=== PATIENT | female | born 1945 | race Caucasian/White ===

== ENCOUNTER 2019-01-31 12:08 | Outpatient (CLI) | END 2019-01-31 12:09 | disposition home or self-care (01) | LOC: RHC-LAB 12:08 → FCC-LAB 12:09 | PROVIDERS: ATTEND Family Medicine | DX: E11.65 Type 2 diabetes mellitus with hyperglycemia (principal); I10 Essential (primary) hypertension | CPT/HCPCS: 36415; 80053; 80061; 82043; 83037; 85025 ==

== ENCOUNTER 2019-11-06 11:47 | Inpatient (IN) ==
[2019-11-06] MEDS ORDERED: SODIUM CHLORIDE 1,000 ML IV STA ×2 (12:26→15:43)
[2019-11-06] MEDS ORDERED: DUONEB NEB STA (12:26)
[2019-11-06] MEDS ORDERED: ANTIVERT PO STA (12:28)
--- NOTE | 2019-11-06 12:33 | ED.PDOC ---
General ED Provider: Dr. PAVITHRA JERRY MD Chief Complaint: Dizziness Stated Complaint: mild to mod sudden dizzy today with the room spinning, blood sugar high, no injury, +general weakness and fatigue, no fever, no on home oxygen, current RA O2sat 91% Time Seen by Physician: 12:30 Mode of Arrival: Walk-In Information Source: Patient Nursing and Triage Documentation Reviewed and Agree: Yes Does patient meet sepsis criteria?: No System Inflammatory Response Syndrome: Not Applicable Sepsis Protocol: For patient's 13 years and over: Temp is 96.8 and below OR 101 and greater Pulse >90 BPM Resp >20/minute Acutely Altered Mental Status Are patient's symptoms suggestive of a new infection, such as: -Pneumonia -Skin, Soft Tissue -Endocarditis -UTI -Bone, Joint Infection -Implantable Device -Acute Abdominal Infection -Wound Infection -Meningitis -Blood Stream Catheter Infection -Unknown Neurological Complaint Exam Dizziness Complaint/Exam Onset: Sudden Duration: few hours Symptoms Are: Still present Timing: Constant Initial Severity: Moderate Current Severity: Mild Character: Reports Head spinning Aggravating: Reports Position change Associated Signs and Symptoms: Denies Vomiting CVA Risk Factors: Reports Diabetes Review of Systems Review Of Systems Constitutional: Denies Fever Eyes: Denies Vision change Ears, Nose, Mouth, Throat: Denies Throat pain Respiratory: Reports Wheezing Cardiac: Denies Chest pain GI: Denies Vomiting Musculoskeletal: Denies Back pain Skin: Denies Rash and Cyanosis Neurological: Denies Cognitive dysfunction and Headache All Other Systems: Other [facility] Medical History (Updated 11/06/19 @ 17:05 by CHANTELLE HADLEY RN) Adult BMI 31.0-31.9 kg/sq m Arthritis Chronic hip pain Chronic hip pain, bilateral (Acute) Decreased mobility (Acute) Diabetes mellitus Elevated cholesterol Gastroesophageal reflux disease Heart disease History of heart artery stent (Acute) Hypertension (Acute) Osteoarthritis, hip, bilateral (Acute) Seasonal allergies Tachycardia (Acute) Family History 19 CHILD Age: 34 Depression Seizures daughter No problems noted. daughter No problems noted. son Cancer son No problems noted. Social History Smoking and tobacco status: Current some day smoker Tobacco: How many years used: 40 Quit status: not considering quitting Second hand smoke exposure: Yes Smoking risk assessment performed: No Alcohol intake: never Substance use type: does not use Counseling given: No Counseling provided: none Sammi/yarsanism: MORAVIAN Special sammi needs: No Agree to transfusion: Yes Adopted: No Caregiver/support person: No Foster care: No Household members: children and friend(s) Housing: other Marital status: W / Lives independently: No Daycare: no daycare Number of children: 4 Number of grandchildren: 8 Highest education level completed: high school graduate Financial difficulty paying for basics: somewhat hard service: No long term: No Current occupational status: disabled Current occupational exposures/hazards: No Pets and animals: Yes Leisure activites: other History of recent travel: Yes Sexually active: No Do you think of yourself as: straight/heterosexual Current gender identity: female Seatbelt use: always Helmet use: No Drives intoxicated or rides with intoxicated wedding transportation driver: No Current diet type/program: regular Well-balanced diet: rarely Caffeine: Yes Eating out: 1-3 times/week Reads food labels: seldom or never During the past year weight has: remained stable Water heater temperature set < 120 degrees: Yes Working smoke detector in home: Yes Fire extinguisher in home: Yes Carbon monoxide detector in home: No Firearms in home: No What type of physical activity do you participate in?: none Physical activity functional status: assisted ambulation How many days of moderate to strenuous exercise, like a brisk walk, did you do in the last 7 days: 0 Physical Exam Physical Exam Appearance: Reports Well-appearing Ill-appearing: None Pain Distress: None Eyes: Reports JARETH and EOMI ENT: Reports Dry mucosa Neck: Supple Respiratory: Reports Airway patent and Wheezes Cardiovascular: Reports Irregular rhythm; Denies Tachycardia GI/: Reports Soft and Nontender Musculoskeletal: Reports No edema Skin: Reports Warm and Dry Neurological: Reports Sensation intact and Cranial nerves intact Psychiatric: Reports Affect appropriate Interpretation Radiology Interpretation Radiology Interpretation By: Radiologist Radiology Results: No acute changes Exam Interpreted: CXR EKG Interpretation Time of EKG #1: 15:45 Interpretation: atrial fib 70 w/o stemi, as seen 10/29/19 Re-Evaluation Re-Evaluation Time of Re-Evaluation: 15:46 Status: Improved Vital Signs Stable: Yes Appearance: NAD Lungs: Clear Skin: Warm and Dry Neuro: Alert and Oriented X3 Additional Comments: admit d/w Karen for relative hypoxia, dehydration, hyperglycemia Critical Care Note Critical Care Note Total Time (mins): 0 Course Course Hematology/Chemistry: 11/06/19 13:00 11/06/19 13:00 Orders, Labs, Meds: Lab Review 11/06/19 11/06/19 11/06/19 12:33 12:40 13:00 WBC 24.35 H RBC 4.50 Hgb 11.3 L Hct 37.0 MCV 82.2 MCH 25.1 L MCHC 30.5 L RDW Coeff of Ann 14.3 Plt Count 468 H Immature Gran % (Auto) 0.6 Neut % (Auto) 84.0 H Lymph % (Auto) 7.5 L Cook % (Auto) 7.6 Eos % (Auto) 0.0 Baso % (Auto) 0.3 Immature Gran # (Auto) 0.2 Neut # (Auto) 20.4 H Lymph # (Auto) 1.8 Cook # (Auto) 1.9 Eos # (Auto) 0.0 Baso # (Auto) 0.1 Puncture Site Rrad O2 Saturation 92.0 L ABG pH 7.390 ABG pCO2 43.2 ABG pO2 65.0 L ABG HCO3 26.2 H ABG Total CO2 27 ABG Base Excess 1 Victor Hugo Test + FiO2 % 21.0 Sodium Potassium Chloride Carbon Dioxide Anion Gap BUN Creatinine Estimated GFR (MDRD) BUN/Creatinine Ratio Glucose Lactic Acid Calcium Total Bilirubin AST ALT Alkaline Phosphatase Troponin I NT-Pro-B Natriuret Pep Total Protein Albumin Globulin Albumin/Globulin Ratio TSH Free T4 Urine Color Yellow Urine Clarity Clear Urine pH 7.0 Ur Specific [place] 1.015 Urine Protein Trace H Urine Glucose (UA) 2+ H Urine Ketones Negative Urine Blood Trace-intact H Urine Nitrite Negative Urine Bilirubin Negative Urine Urobilinogen 0.2 Ur Leukocyte Esterase Negative Urine Microscopic RBC 10-20 Urine Microscopic WBC 5-10 Ur Squamous Epith Cells 10-20 Ur Transition Epith Cell 0-2 Urine Bacteria 3+ Acetone, Qual Influ A Molecular Assay Influ B Molecular Assay 11/06/19 11/06/19 11/06/19 13:00 13:00 13:00 WBC RBC Hgb Hct MCV MCH MCHC RDW Coeff of Ann Plt Count Immature Gran % (Auto) Neut % (Auto) Lymph % (Auto) Cook % (Auto) Eos % (Auto) Baso % (Auto) Immature Gran # (Auto) Neut # (Auto) Lymph # (Auto) Cook # (Auto) Eos # (Auto) Baso # (Auto) Puncture Site O2 Saturation ABG pH ABG pCO2 ABG pO2 ABG HCO3 ABG Total CO2 ABG Base Excess Victor Hugo Test FiO2 % Sodium 133.0 L Potassium 4.46 Chloride 85.9 L Carbon Dioxide 25.0 Anion Gap 26.56 BUN 28.9 H Creatinine 1.54 H Estimated GFR (MDRD) 33.00 BUN/Creatinine Ratio 18.76 Glucose 742.8 H* Lactic Acid Calcium 9.56 Total Bilirubin 0.64 AST 38.3 H ALT 37.3 H Alkaline Phosphatase 169.7 H Troponin I 0.040 NT-Pro-B Natriuret Pep Total Protein 7.37 Albumin 4.44 Globulin 2.93 Albumin/Globulin Ratio 1.51 TSH Free T4 1.55 Urine Color Urine Clarity Urine pH Ur Specific [place] Urine Protein Urine Glucose (UA) Urine Ketones Urine Blood Urine Nitrite Urine Bilirubin Urine Urobilinogen Ur Leukocyte Esterase Urine Microscopic RBC Urine Microscopic WBC Ur Squamous Epith Cells Ur Transition Epith Cell Urine Bacteria Acetone, Qual N Influ A Molecular Assay Influ B Molecular Assay 11/06/19 11/06/19 11/06/19 13:00 14:45 15:00 WBC RBC Hgb Hct MCV MCH MCHC RDW Coeff of Ann Plt Count Immature Gran % (Auto) Neut % (Auto) Lymph % (Auto) Cook % (Auto) Eos % (Auto) Baso % (Auto) Immature Gran # (Auto) Neut # (Auto) Lymph # (Auto) Cook # (Auto) Eos # (Auto) Baso # (Auto) Puncture Site O2 Saturation ABG pH ABG pCO2 ABG pO2 ABG HCO3 ABG Total CO2 ABG Base Excess Victor Hugo Test FiO2 % Sodium Potassium Chloride Carbon Dioxide Anion Gap BUN Creatinine Estimated GFR (MDRD) BUN/Creatinine Ratio Glucose Lactic Acid 4.86 H Calcium Total Bilirubin AST ALT Alkaline Phosphatase Troponin I NT-Pro-B Natriuret Pep Total Protein Albumin Globulin Albumin/Globulin Ratio TSH 2.200 Free T4 Urine Color Urine Clarity Urine pH Ur Specific [place] Urine Protein Urine Glucose (UA) Urine Ketones Urine Blood Urine Nitrite Urine Bilirubin Urine Urobilinogen Ur Leukocyte Esterase Urine Microscopic RBC Urine Microscopic WBC Ur Squamous Epith Cells Ur Transition Epith Cell Urine Bacteria Acetone, Qual Influ A Molecular Assay Negative by naat Influ B Molecular Assay Negative by naat 03/19/20 15:00 WBC RBC Hgb Hct MCV MCH MCHC RDW Coeff of Ann Plt Count Immature Gran % (Auto) Neut % (Auto) Lymph % (Auto) Cook % (Auto) Eos % (Auto) Baso % (Auto) Immature Gran # (Auto) Neut # (Auto) Lymph # (Auto) Cook # (Auto) Eos # (Auto) Baso # (Auto) Puncture Site O2 Saturation ABG pH ABG pCO2 ABG pO2 ABG HCO3 ABG Total CO2 ABG Base Excess [place] Test FiO2 % Sodium Potassium Chloride Carbon Dioxide Anion Gap BUN Creatinine Estimated GFR (MDRD) BUN/Creatinine Ratio Glucose Lactic Acid Calcium Total Bilirubin AST ALT Alkaline Phosphatase Troponin I NT-Pro-B Natriuret Pep 637.000 H Total Protein Albumin Globulin Albumin/Globulin Ratio TSH Free T4 Urine Color Urine Clarity Urine pH Ur Specific [place] Urine Protein Urine Glucose (UA) Urine Ketones Urine Blood Urine Nitrite Urine Bilirubin Urine Urobilinogen Ur Leukocyte Esterase Urine Microscopic RBC Urine Microscopic WBC Ur Squamous Epith Cells Ur Transition Epith Cell Urine Bacteria Acetone, Qual Influ A Molecular Assay Influ B Molecular Assay Orders Category Date Time Status ABG DRAW REQUEST Stat CARDIO 11/06/19 12:33 Completed EKG-(ED ONLY) Stat CARDIO 11/06/19 14:23 Completed NEBULIZER TREATMENT Stat CARDIO 11/06/19 12:26 Completed TELEMETRY MONITORING TELE CARE 11/06/19 15:45 Active ED APPLY O2 .ONCE EMERGENCY 11/06/19 12:26 Active ABG Stat LAB 11/06/19 12:33 Completed ACETONE, QUALITATIVE Stat LAB 11/06/19 13:00 Completed BLOOD CULTURE Stat LAB 11/06/19 14:20 Received CBC W/ AUTO DIFF Stat LAB 11/06/19 13:00 Completed COMPREHENSIVE METABOLIC PANEL Stat LAB 11/06/19 13:00 Completed FLU A/B MOLECULAR Stat LAB 11/06/19 14:45 Completed LACTIC ACID Stat LAB 11/06/19 15:00 Completed NT-PROBNP Stat LAB 11/06/19 15:00 Completed TROPONIN I Stat LAB 11/06/19 13:00 Completed URINALYSIS C & S IF INDICATED Stat LAB 11/06/19 12:40 Completed URINE CULTURE Stat LAB 11/06/19 12:40 Received Ceftriaxone/D5w 1 gm Premix [Rocephin 1 gm/50 ml D5w] MEDS 11/06/19 14:02 Discontinued 1 gm in 50 ml IV ONCE Insulin Regular, Human [Humulin R] MEDS 11/06/19 14:04 Discontinued 5 unit IVP ONCE STA Ipratropium/Albuterol Neb [Duoneb] MEDS 11/06/19 12:26 Discontinued 3 ml NEB ONCE STA Meclizine HCl [Antivert] MEDS 11/06/19 12:28 Discontinued 25 mg PO ONCE STA Sodium Chloride 0.9% [Sodium Chloride] 1,000 ml MEDS 11/06/19 12:26 Discon tinued IV BOLUS Sodium Chloride 0.9% [Sodium Chloride] 1,000 ml MEDS 11/06/19 15:43 Discont inued IV BOLUS CHEST, 1V AP ONLY Stat RADS 11/06/19 12:[address] HEAD W/O CONTRAST Stat RADS 11/06/19 12:26 Completed Medications Generic Name Dose Route Start Last Admin Trade Name Freq PRN Reason Stop Dose Admin Acetaminophen 650 mg 11/06/19 17:03 Tylenol PO Q4H PRN fever or headach Albuterol Sulfate 1 puff 11/06/19 18:00 Proair Hfa IH Q4HWA RILEY Apixaban 5 mg 11/06/19 21:00 Eliquis PO BID [facility] Atorvastatin Calcium 20 mg 11/06/19 17:00 11/06/19 17:30 Lipitor PO 20 mg DAILY@1700 RILEY Administration Hydrochlorothiazide 25 mg 11/07/19 09:00 Hydrochlorothiazide PO DAILY RILEY Sodium Chloride 1,000 mls @ 75 mls/hr 11/06/19 16:00 11/06/19 17:47 Sodium Chloride IV 75 mls/hr .[id number] RILEY Administration Ibuprofen 600 mg 11/06/19 16:53 Motrin PO BID PRN Pain Insulin Human Regular 0 unit 11/06/19 17:49 Humulin R SUBCUT PRN PRN Hyperglycemia Protocol Lisinopril 40 mg 11/06/19 17:00 11/06/19 17:30 Zestril PO 40 mg DAILY RILEY Administration Metformin HCl 1,000 mg 11/06/19 19:00 Glucophage PO BIDWM [facility] Metoprolol Tartrate 50 mg 11/06/19 21:00 Lopressor PO BID [facility] Non-Formulary Medication 0.75 mg 11/06/19 17:00 Dulaglutide [Trulicity] SUBCUT QWEEK [facility] Non-Formulary Medication 3 mg 11/06/19 21:00 Melatonin PO BEDTIME [facility] Omeprazole 20 mg 11/07/19 06:30 Prilosec PO DAILY@0630 RILEY Ondansetron HCl 4 mg 11/06/19 17:01 Zofran 4 Mg/2 Ml IVP Q6H PRN nausea/vomiting Tizanidine HCl 2 mg 11/06/19 21:00 Zanaflex PO BEDTIME [facility] Discontinued Medications Generic Name Dose Route Start Last Admin Trade Name Freq PRN Reason Stop Dose Admin Acetaminophen 650 mg 11/06/19 15:49 Tylenol PO Q4H PRN Mild Pain Albuterol/Ipratropium 3 ml 11/06/19 12:26 11/06/19 13:23 Duoneb NEB 11/06/19 12:27 3 ml ONCE STA Administration Sodium Chloride 1,000 mls @ 1,000 mls/hr 11/06/19 12:26 11/06/19 13:40 Sodium Chloride IV 11/06/19 13:25 1,000 mls/hr BOLUS STA Administration CEFTRIAXONE/D5W 1 GM PREMIX 1 gm in 50 mls @ 75 mls/hr 11/06/19 14:02 11/06/19 14:43 Rocephin 1 Gm/50 Ml D5w IV 11/06/19 14:41 75 mls/hr ONCE STA Administration Sodium Chloride 1,000 mls @ 1,000 mls/hr 11/06/19 15:43 Sodium Chloride IV 11/06/19 16:42 BOLUS STA Insulin Human Regular 5 unit 11/06/19 14:04 11/06/19 14:43 Humulin R IVP 11/06/19 14:05 5 unit ONCE STA Administration Meclizine HCl 25 mg 11/06/19 12:28 11/06/19 13:41 Antivert PO 11/06/19 12:29 25 mg ONCE STA Administration Vital Signs: Temp Pulse Resp BP Pulse Ox 11/06/19 11:47 99.3 F 85 20 118/62 91 L Discharge Plan Discharge Patient Disposition: PLACED OBSERVATION Discharge Problem: Hypoxia, Acute hyperglycemia Leukocytosis Qualifiers: Leukocytosis type: unspecified Qualified Code(s): D72.829 - Elevated white blood cell count, unspecified ED Provider: PAVITHRA JERRY Condition: Good Discharge Date/Time: 11/06/19 16:05
--- NOTE | 2019-11-06 13:23 | CT ---
EXAM: CT BRAIN HISTORY: Dizziness TECHNIQUE: CT brain without intravenous contrast. 5-mm axial sections with Reformations. COMPARISON: None FINDINGS: Brain was unremarkable without evidence of hemorrhage or large vessel distribution recent ischemic i nfarction. There is no suggestion of acute hydrocephalus or subdural fluid collection. No mass or m ass effect. Cranium has no acute finding. Mastoid processes are aerated. The visualized paranasal sinuses are clear. IMPRESSION: No acute intracranial process.
--- NOTE | 2019-11-06 13:36 | DI ---
EXAM: CHEST FRONTAL VIEW HISTORY: Weakness. COMPARISON: None FINDINGS: Cardiomegaly and sternotomy wires as well as atherosclerotic disease are present. No acut e infiltrates are seen. No vascular congestion. There is no consolidation, visible pleural fluid or pneumothorax. Bones reveal no acute fracture. IMPRESSION: No acute cardiopulmonary process.
[2019-11-06] MEDS ORDERED: ROCEPHIN 1 GM/50 ML D5W 1 GM/50 ML BAG IV STA (14:02)
[2019-11-06] MEDS ORDERED: HUMULIN R IVP STA (14:04)
[2019-11-06] MEDS ORDERED: TYLENOL PO PRN ×3 (15:49→21:00)
[2019-11-06 16:48] VITALS: BMI 30.4
[2019-11-06] MEDS ORDERED: MOTRIN PO PRN ×2 (16:53→21:00)
[2019-11-06] MEDS ORDERED: ZESTRIL PO SCH (17:00)
[2019-11-06] MEDS ORDERED: LIPITOR PO SCH (17:00)
[2019-11-06] MEDS ORDERED: NON-FORMULARY MEDICATION (Dulaglutide [Trulicity] 0.75 MG) SUBCUT SCH (17:00)
[2019-11-06] MEDS ORDERED: ZOFRAN 4 MG/2 ML IVP PRN (17:01)
[2019-11-06] MEDS ORDERED: HUMULIN R SUBCUT PRN (17:07)
[2019-11-06] MEDS ORDERED: HUMULIN R ONE (17:28)
[2019-11-06] MEDS: SODIUM CHLORIDE 1,000 ML IV SCH (17:47)
[2019-11-06] MEDS ORDERED: PROAIR HFA (SINGLE PATIENT USE) IH SCH (18:00)
[2019-11-06] MEDS ORDERED: GLUCOPHAGE PO SCH (19:00)
[2019-11-06] MEDS: HUMULIN R SUBCUT PRN (20:46)
[2019-11-06] MEDS ORDERED: ELIQUIS PO SCH (21:00)
[2019-11-06] MEDS ORDERED: ZANAFLEX PO SCH ×2 (21:00)
[2019-11-06] MEDS ORDERED: LOPRESSOR PO SCH (21:00)
[2019-11-06] MEDS: PROAIR HFA (SINGLE PATIENT USE) IH SCH (21:12)
[2019-11-06] MEDS: ELIQUIS PO SCH (21:42)
[2019-11-06] MEDS: LOPRESSOR PO SCH (21:43)
[2019-11-07 06:04] LABS: HEMATOCRIT 31.6 % (37.0-47.0)
[2019-11-07] MEDS: PROAIR HFA (SINGLE PATIENT USE) IH SCH ×4 (06:12→18:07)
[2019-11-07] MEDS: HUMULIN R SUBCUT PRN ×3 (06:13→18:02)
[2019-11-07] MEDS: SODIUM CHLORIDE 1,000 ML IV SCH (06:18)
[2019-11-07] MEDS ORDERED: PRILOSEC PO SCH (06:30)
--- NOTE | 2019-11-07 07:22 | PCM ---
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 Lisinopril [Zestril] MEDS 11/07/19 09:00 Active 40 mg PO DAILY Meclizine HCl [Antivert] MEDS 11/06/19 12:28 Discontinued 25 mg PO ONCE STA Metformin HCl [Glucophage] MEDS 11/06/19 19:00 Discontinued 1,000 mg PO BIDWM Metformin HCl [Glucophage] MEDS 11/07/19 08:00 Active 1,000 mg PO BIDWM Metoprolol Tartrate [Lopressor] MEDS 11/06/19 21:00 Active 50 mg PO BID Metoprolol Tartrate [Lopressor] MEDS 11/06/19 21:00 Discontinued 50 mg PO BID Omeprazole [Prilosec] MEDS 11/07/19 06:30 Active 20 mg PO DAILY@0630 Ondansetron HCl/Pf [Zofran 4 mg/2 ml] MEDS 11/06/19 17:01 Active 4 mg IVP Q6H PRN Sodium Chloride 0.9% [Sodium Chloride] 1,000 ml MEDS 11/06/19 16:00 Active IV 75 mls/hr Sodium Chloride 0.9% [Sodium Chloride] 1,000 ml MEDS 11/06/19 12:26 Discontinued IV BOLUS Sodium Chloride 0.9% [Sodium Chloride] 1,000 ml MEDS 11/06/19 15:43 D iscontinued IV BOLUS Tizanidine HCl [Zanaflex] MEDS 11/06/19 21:00 Active 2 mg PO BEDTIME Tizanidine HCl [Zanaflex] MEDS 11/06/19 21:00 Discontinued 2 mg PO BEDTIME dulaglutide [Trulicity] MEDS 11/06/19 17:00 Active 0.75 mg SUBCUT QWEEK melatonin MEDS 11/06/19 21:00 Active 3 mg PO BEDTIME RESUSCITATION STATUS Routine OTHERS 11/06/19 15:49 Ordered CHEST, 1V AP ONLY Stat RADS 11/06/19 12:[address] HEAD W/O CONTRAST Stat RADS 11/06/19 12:26 Completed Medications Generic Name Dose Route Start Last Admin Trade Name Freq PRN Reason Stop Dose Admin Acetaminophen 650 mg 11/06/19 21:00 Tylenol PO Q4H PRN fever or headach Albuterol Sulfate 1 puff 11/06/19 22:00 11/07/19 06:12 Proair Hfa IH 1 puff Q4HWA RILEY Administration Apixaban 5 mg 11/06/19 21:00 11/06/19 21:42 Eliquis PO 5 mg BID RILEY Administration Atorvastatin Calcium 20 mg 11/07/19 17:00 Lipitor PO DAILY@1700 RI[facility] Hydrochlorothiazide 25 mg 11/07/19 09:00 Hydrochlorothiazide PO DAILY RILEY Sodium Chloride 1,000 mls @ 75 mls/hr 11/06/19 16:00 11/07/19 06:18 Sodium Chloride IV 75 mls/hr .[id number] RILEY Administration CEFTRIAXONE/D5W 1 GM PREMIX 1 gm in 50 mls @ 75 mls/hr 11/07/19 09:00 Rocephin 1 Gm/50 Ml D5w IV 11/10/19 08:59 DAILY RI[facility] Azithromycin 500 mg/ Sodium 250 mls @ 125 mls/hr 11/07/19 07:15 Chloride IV 11/10/19 07:14 DAILY [facility] Ibuprofen 600 mg 11/06/19 21:00 Motrin PO BID PRN Pain Insulin Human Regular 0 unit 11/06/19 17:49 11/07/19 06:13 Humulin R SUBCUT 4 unit DIRECTED PRN Administration Hyperglycemia Protocol Lisinopril 40 mg 11/07/19 09:00 Zestril PO DAILY [facility] Metformin HCl 1,000 mg 11/07/19 08:00 Glucophage PO BIDWM [facility] Metoprolol Tartrate 50 mg 11/06/19 21:00 11/06/19 21:43 Lopressor PO 50 mg BID RILEY Administration Non-Formulary Medication 0.75 mg 11/06/19 17:00 Dulaglutide [Trulicity] SUBCUT QWEEK [facility] Non-Formulary Medication 3 mg 11/06/19 21:00 11/06/19 21:44 Melatonin PO Not Given BEDTIME [facility] Omeprazole 20 mg 11/07/19 06:30 11/07/19 06:12 Prilosec PO 20 mg DAILY@0630 [facility] Administration Ondansetron HCl 4 mg 11/06/19 17:01 Zofran 4 Mg/2 Ml IVP Q6H PRN nausea/vomiting Tizanidine HCl 2 mg 11/06/19 21:00 11/06/19 21:44 Zanaflex PO 2 mg BEDTIME RILEY Administration Discontinued Medications Generic Name Dose Route Start Last Admin Trade Name Freq PRN Reason Stop Dose Admin Acetaminophen 650 mg 11/06/19 15:49 Tylenol PO Q4H PRN Mild Pain Acetaminophen 650 mg 11/06/19 17:03 Tylenol PO Q4H PRN fever or headach Albuterol Sulfate 1 puff 11/06/19 18:00 Proair Hfa IH Q4HWA [facility] Albuterol/Ipratropium 3 ml 11/06/19 12:26 11/06/19 13:23 Duoneb NEB 11/06/19 12:27 3 ml ONCE STA Administration Apixaban 5 mg 11/06/19 21:00 11/06/19 20:49 Eliquis PO 5 mg BID RILEY Administration Atorvastatin Calcium 20 mg 11/06/19 17:00 11/06/19 17:30 Lipitor PO 20 mg DAILY@1700 [facility] Administration Sodium Chloride 1,000 mls @ 1,000 mls/hr 11/06/19 12:26 11/06/19 13:40 Sodium Chloride IV 11/06/19 13:25 1,000 mls/hr BOLUS STA Administration CEFTRIAXONE/D5W 1 GM PREMIX 1 gm in 50 mls @ 75 mls/hr 11/06/19 14:02 11/06/19 14:43 Rocephin 1 Gm/50 Ml D5w IV 11/06/19 14:41 75 mls/hr ONCE STA Administration Sodium Chloride 1,000 mls @ 1,000 mls/hr 11/06/19 15:43 Sodium Chloride IV 11/06/19 16:42 BOLUS STA Ibuprofen 600 mg 11/06/19 16:53 Motrin PO BID PRN Pain Insulin Human Regular 5 unit 11/06/19 14:04 11/06/19 14:43 Humulin R IVP 11/06/19 14:05 5 unit ONCE STA Administration Lisinopril 40 mg 11/06/19 17:00 11/06/19 17:30 Zestril PO 40 mg DAILY RILEY Administration Meclizine HCl 25 mg 11/06/19 12:28 11/06/19 13:41 Antivert PO 11/06/19 12:29 25 mg ONCE STA Administration Metformin HCl 1,000 mg 11/06/19 19:00 Glucophage PO BIDWM [facility] Metoprolol Tartrate 50 mg 11/06/19 21:00 11/06/19 20:44 Lopressor PO 50 mg BID RILEY Administration Tizanidine HCl 2 mg 11/06/19 21:00 11/06/19 20:44 Zanaflex PO 4 mg BEDTIME RILEY Administration Assessment (1) Sepsis: Status: Acute Code(s): A41.9 - Sepsis, unspecified organism SNOMED Code(s): 51397436 Qualifiers: Sepsis acute organ dysfunction status: unspecified Sepsis type: sepsis due to unspecified organism Qualified Code(s): A41.9 - Sepsis, unspecified organism (2) Hypoxia: Status: Acute Code(s): R09.02 - Hypoxemia SNOMED Code(s): 692950321 (3) Leukocytosis: Status: Acute Code(s): D72.829 - Elevated white blood cell count, unspecified SNOMED Code(s): 835042649 Qualifiers: Leukocytosis type: unspecified Qualified Code(s): D72.829 - Elevated white blood cell count, unspecified (4) Atrial fibrillation: Status: Acute Code(s): I48.91 - Unspecified atrial fibrillation SNOMED Code(s): 69427843 Qualifiers: Atrial fibrillation type: paroxysmal Qualified Code(s): I48.0 - Paroxysmal atrial fibrillation (5) Type 2 diabetes mellitus with hyperglycemia: Status: Acute Code(s): E11.65 - Type 2 diabetes mellitus with hyperglycemia SNOMED Code(s): 23389610 Qualifiers: Diabetes mellitus assisted insulin use: without assisted use Qualified Code(s): E11.65 - Type 2 diabetes mellitus with hyperglycemia (6) Transaminitis: Status: Acute Code(s): R74.0 - Nonspecific elevation of levels of transaminase and lactic acid dehydrogenase [LDH] SNOMED Code(s): 643283351 (7) History of heart bypass surgery: Status: Acute Code(s): Z95.1 - Presence of aortocoronary bypass graft SNOMED Code(s): 345365436 (8) History of heart artery stent: Status: Acute Code(s): Z95.5 - Presence of coronary angioplasty implant and graft SNOMED Code(s): 795963265 (9) Osteoarthritis, hip, bilateral: Status: Acute Code(s): M16.0 - Bilateral primary osteoarthritis of hip SNOMED Code(s): 224223434 Qualifiers: Osteoarthritis type: primary Qualified Code(s): M16.0 - Bilateral primary osteoarthritis of hip (10) Chronic hip pain, bilateral: Status: Acute Code(s): M25.551 - Pain in right hip; M25.552 - Pain in left hip; G89.29 - Other chronic pain SNOMED Code(s): 71566213 (11) Hypertension: Status: Acute Code(s): I10 - Essential (primary) hypertension SNOMED Code(s): 90089108 Qualifiers: Hypertension type: essential hypertension Qualified Code(s): I10 - Essential (primary) hypertension (12) Decreased mobility: Status: Acute Code(s): R26.89 - Other abnormalities of gait and mobility SNOMED Code(s): 9560493 Plan Plan: Sepsis w/ Hypoxia, Leukocytosis, periods of Tachycardia---unstable w/ likely heart disease issues---transferring her to [facility] if they will accept for NM stress test and possible heart cath; continue home meds; Ceftriaxone 1 GM Q 24hrs; Azithromycin 500mg IV Q 24hrs added this AM w/ further WBC elevation; IVF bolus 1L w/ NS @ 75 ml/hr cont'd; O2 as per protocol w/ currently 98% sat @ 2L/NC; VS q 4hr; I&O; daily wts.; telemetry. Afib-paroxymal --con't monitor; cardiology consult; home meds cont'd. Type 2 DM w/ hyperglycemia and new Rx Trulicity---SSI insulin controling at present; Cardiology wants to start Jardiance w/ 1st dose given 11/07/2019 afternoon w/ last dose of Metformin 1000mg around 10:30AM and Jaridiance started prior to 11:00AM per nursing report--- patient does not want to do insulin at home. Will put Metformin on hold for patient transfer and NM testing possiblities. Transaminitis--new problem that cleared w/ IVF replacement---monitor labs. Osteoarthritis bilateral hips w/ mobility issues and chronic pain----unchanged chronic pain. Has been taking Ibuprofen 600mg BID prn at home---stopped by SUPERVISOR ORCHARD and soaker meat. HTN--stable; con't home meds.
[2019-11-07] MEDS ORDERED: GLUCOPHAGE PO SCH (08:00)
[2019-11-07] MEDS: ZITHROMAX 500 MG in SODIUM CHLORIDE 250 ML IV SCH ×2 (08:34→10:39)
--- NOTE | 2019-11-07 08:34 | PCM.PROG ---
Attending Provider: ATTENDING PROVIDER: Dr. BRANDEN ELDRIDGE This patient is seen with Nimisha Parra, Nurse Practitioner. DATE OF SERVICE: 11/07/19 SUBJECTIVE: This 73 year old /WHITE F was hospitalized 11/06/19. The patient is awake and resting in the bed. She is has been up in the room. She has a good appetite. She is feeling from better then when she initially came in. She is not wanting to wear her SUSY hose because she says they are uncomfortable. We will have an echo done today. She denies any chest pain, shortness of breath or dizziness at this time. REVIEW OF SYSTEMS: CONSTITUTIONAL: No night sweats. No fatigue, malaise, lethargy. No fever or chills. HEENT: Eyes: No visual changes. No eye pain. No eye discharge. ENT: No runny nose. No epistaxis. No sinus pain. No odynophagia. No congestion. RESPIRATORY: No cough, no congestion. No hemoptysis. No shortness of breath. CARDIOVASCULAR: No angina symptoms. No CHF symptoms. No atypical chest pain for CAD. No palpitations. No orthopnea.. GASTROINTESTINAL: No abdominal pain. No nausea or vomiting. No diarrhea or constipation. No hematemesis. No hematochezia. GENITOURINARY: No urgency. No frequency. No dysuria. No hematuria. No obstructive symptoms. No discharge. No pain. No significant abnormal bleeding. MUSCULOSKELETAL: No musculoskeletal pain; no joint swelling. NEUROLOGICAL: Awake, alert, oriented to time, place and person. No headache. No neck pain. No syncope. No seizures. No dizziness. PSYCHIATRIC: Not anxious. No depression. No suicidal thoughts. No homicidal thoughts. SKIN: No rash. No lesions. No wounds. ENDOCRINE: No unexplained weight loss. No weight gain. HEMATOLOGIC/LYMPHATIC: No anemia. No purpura. No petechiae. No prolonged or excessive bleeding. No palpable lymph nodes. PHYSICAL EXAMINATION: GENERAL: The patient is awake, alert and oriented, lying in bed in no distress. VITAL SIGNS: Temperature 98.8 F, Pulse 105, Respiratory Rate 16, BP 118/69, Pulse Ox 94% HEENT: Head normocephalic, atraumatic. Eyes: Extraocular muscles are intact. Pupils are equal, round and reactive to light and accommodation. Ears: No lesions. Nose appeared normal. Throat: No exudate or erythema. NECK: Supple. No JVD, no carotid bruit. No lymphadenopathy or thyromegaly. LUNGS: Diminished breath sounds. Clear to auscultation. Percussion note normal. Chest symmetrical. HEART: S1, S2, no S3. Irregular heart rate. No murmurs. No cyanosis or clubbing. No ascites. Pulses: Dorsalis pedis and posterior tibial pulses +1 to +2 both sides. ABDOMEN: Soft. Non-tender. Bowel sounds active. No CVA tenderness. No mass felt. EXTREMITIES: No edema. Full range of motion of all extremities, equal. NEUROLOGIC: No focal deficit. Cranial nerves II through XII are grossly intact. No headache, no double vision or headache. SKIN: Not dry. Intact. Turgor-normal. LYMPHATIC: No palpable lymph nodes/no lymphedema. MUSCULOSKELETAL: Normal joints with no swelling. Muscle tone is normal. LAB REVIEW: 11/07/19 05:00 11/07/19 05:00 11/07/19 05:00: Sodium 136.7, Potassium 3.86, Chloride 95.8 L, Carbon Dioxide 33.0 H D, Anion Gap 11.76, BUN 22.4 H, Creatinine 1.01 D, Estimated GFR (MDRD) 54.00, BUN/Creatinine Ratio 22.17, Glucose 247.6 H D, Calcium 8.93, Total Bilirubin 0.29, AST 29.8, ALT 23.3, Alkaline Phosphatase 135.4 D, Total Protein 6.44, Albumin 3.48 L, Globulin 2.96, Albumin/Globulin Ratio 1.17 11/07/19 05:00: WBC 27.53 H, RBC 3.87 L, Hgb 9.8 L, Hct 31.6 L, MCV 81.7, MCH 25.3 L, MCHC 31.0 L, RDW Coeff of Ann 14.3, Plt Count 390, Neutrophils % (Manual) 77.0 H, Band Neutrophils % 5.0, Lymphocytes % (Manual) 6.0 L, Monocytes % (Manual) 12.0 H, Eosinophils % (Manual) 0.0, Basophils % (Manual) 0.0, Polychromasia 1+, Poikilocytosis 1+, Anisocytosis Not present, Tear Drop Cells 1+ 11/07/19 05:00: Troponin I 0.038 03/19/20 20:43: Troponin I 0.029 11/06/19 15:00: NT-Pro-B Natriuret Pep 637.000 H 11/06/19 15:00: Lactic Acid 4.86 H 11/06/19 14:45: Influ A Molecular Assay Negative by naat, Influ B Molecular Assay Negative by naat 11/06/19 13:00: TSH 2.200 11/06/19 13:00: Free T4 1.55 11/06/19 13:00: Acetone, Qual N 11/06/19 13:00: Sodium 133.0 L, Potassium 4.46, Chloride 85.9 L, Carbon Dioxide 25.0, Anion Gap 26.56, BUN 28.9 H, Creatinine 1.54 H, Estimated GFR (MDRD) 33.00, BUN/Creatinine Ratio 18.76, Glucose 742.8 H*, Calcium 9.56, Total Bilirubin 0.64, AST 38.3 H, ALT 37.3 H, Alkaline Phosphatase 169.7 H, Troponin I 0.040, Total Protein 7.37, Albumin 4.44, Globulin 2.93, Albumin/Globulin Ratio 1.51 11/06/19 13:00: WBC 24.35 H, RBC 4.50, Hgb 11.3 L, Hct 37.0, MCV 82.2, MCH 25.1 L, MCHC 30.5 L, RDW Coeff of Ann 14.3, Plt Count 468 H, Immature Gran % (Auto) 0.6, Neut % (Auto) 84.0 H, Lymph % (Auto) 7.5 L, [place] % (Auto) 7.6, Eos % (Auto) 0.0, Baso % (Auto) 0.3, Immature Gran # (Auto) 0.2, Neut # (Auto) 20.4 H, Lymph # (Auto) 1.8, [place] # (Auto) 1.9, Eos # (Auto) 0.0, Baso # (Auto) 0.1 11/06/19 12:40: Urine Color Yellow, Urine Clarity Clear, Urine pH 7.0, Ur Specific [place] 1.015, Urine Protein Trace H, Urine Glucose (UA) 2+ H, Urine Ketones Negative, Urine Blood Trace-intact H, Urine Nitrite Negative, Urine Bilirubin Negative, Urine Urobilinogen 0.2, Ur Leukocyte Esterase Negative, Urine Microscopic RBC 10-20, Urine Microscopic WBC 5-10, Ur Squamous Epith Cells 10-20, Ur Transition Epith Cell 0-2, Urine Bacteria 3+ 11/06/19 12:33: Puncture Site Rrad, O2 Saturation 92.0 L, ABG pH 7.390, ABG pCO2 43.2, ABG pO2 65.0 L, ABG HCO3 26.2 H, ABG Total CO2 27, ABG Base Excess 1, Victor Hugo Test +, FiO2 % 21.0 ASSESSMENT: Please see below. 1. Atrial fibrillation 2. Acute bronchitis PLAN: 1. ECHO today 2. Continue Eliquis Plan and coordination of the patient's care discussed in the presence of [employer] Saw Tender and nurse. SCRIBED BY: Art JOHNSONist scribed while in presence of service performed by Dr. Blue/Nimisha Parra APRN on 11/07/19 ([id number])
[2019-11-07] MEDS ORDERED: ZESTRIL PO SCH (09:00)
[2019-11-07] MEDS ORDERED: NON-FORMULARY MEDICATION (Dulaglutide [Trulicity] 0.75 MG) SUBCUT SCH (09:00)
[2019-11-07] MEDS ORDERED: HYDROCHLOROTHIAZIDE PO SCH (09:00)
[2019-11-07] MEDS ORDERED: ROCEPHIN 1 GM/50 ML D5W 1 GM/50 ML BAG IV SCH (09:00)
[2019-11-07] MEDS: ELIQUIS PO SCH (10:27)
[2019-11-07] MEDS: LOPRESSOR PO SCH (10:29)
[2019-11-07] MEDS ORDERED: JARDIANCE PO SCH (10:30)
--- NOTE | 2019-11-07 10:34 | ECHO2D ---
Date of Exam: 11/07/2019 Ordering Physician: BRANDEN ELDRIDGE--HOSPITALIST Room #: 112 Reason for Echo: ATRIAL FIBRILLATION, CABG M-Mode Normal Adult Results LV Dimensions Normal Adult Results AoV Opening excursions >1.6 >1.6 LVEDD-base- 3.5-5.8 4.2 Ao root dimensions 2.0-3.7 LVESD-base- 3.1-4.6 L. Atrium dimensions 1.9-3.8 4.6 Post. Wall thickness 0.8-1.1 1.1 IV septum (thickness) 0.7-1.2 1.2 Post. Wall excursion 0.72-1.3 NORMAL Septal motion 0.5 Systolic motion R. Ventricular cavity 1.5-2.0 3.0 LVEF 60% 50% Paradoxical septal wall motion NORMAL 2-D : HYPOKINETIC SEPTUM--ENLARGED RIGHT VENTRICLE CAVITY AND LEFT ATRIAL CAVITY--NORMAL LEFT VENTRICLE SIZE--NORMAL VALVES--NO EFFUSION NO THROMBUS M-MODE: MV: NORMAL AV: NORMAL TV: NORMAL PV: CHAMBER SIZE: ENLARGED RIGHT VENTRICLE AND LEFT ATRIAL CAVITIES WALL MOTION: HYPOKINETIC SEPTUM PERICARDIUM: NORMAL INTERPRETATION: 1. BORDERLINE LEFT VENTRICLE HYPERTROPHY 2. ENLARGED LEFT ATRIAL AND RIGHT VENTRICLE CAVITY 3. HYPOKINETIC SEPTUM WITH EJECTION FRACTION 50% 4. NORMAL VALVES MTDD
--- NOTE | 2019-11-07 14:05 | US ---
EXAM: Carotid ultrasound HISTORY: Dizziness COMPARISON: None TECHNIQUE: Carotid ultrasound was performed using Duplex imaging with enrique scale, color, and Doppler imaging performed. FINDINGS: Right carotid: There is atherosclerotic plaque in the common carotid and bulb/internal carotid arter y. Peak systolic velocity measurement in the right internal carotid artery is 0.53 meters per second . End-diastolic velocity measurement in the right internal carotid artery is 0.30 meters per second. Right internal to common carotid artery peak systolic velocity ratio is 1.1. Flow in the right gaby tebral artery is antegrade. Left carotid: There is atherosclerotic plaque in the common carotid and bulb/internal carotid artery . Peak systolic velocity measurement in the left internal carotid artery is 0.88 meters per second. End-diastolic velocity measurement in the left internal carotid artery is 0.22 meters per second. L eft internal to common carotid artery peak systolic velocity ratio measures 1.3. IMPRESSION: 1. Right internal carotid: Peak systolic velocity corresponds with mild (less than 50%) stenosis. 2. Left internal carotid: Peak systolic velocity corresponds with mild (less than 50%) stenosis 3. Left vertebral artery not visualized. Antegrade flow right vertebral artery.
--- NOTE | 2019-11-07 15:59 | PCM.DC ---
Final Diagnosis: Sepsis w/ Leukocytosis, Hypoxia Chest pain w/ abnormal EKG & ECHO and hx CABG w/ uncontrolled DM, obesity, HTN, HLD, & stents (1) Sepsis: Status: Acute Code(s): A41.9 - Sepsis, unspecified organism SNOMED Code(s): 40511764 Qualifiers: Sepsis acute organ dysfunction status: unspecified Sepsis type: sepsis due to unspecified organism Qualified Code(s): A41.9 - Sepsis, unspecified organism (2) Hypoxia: Status: Acute Code(s): R09.02 - Hypoxemia SNOMED Code(s): 065716045 (3) Leukocytosis: Status: Acute Code(s): D72.829 - Elevated white blood cell count, unspecified SNOMED Code(s): 525532407 Qualifiers: Leukocytosis type: unspecified Qualified Code(s): D72.829 - Elevated white blood cell count, unspecified (4) Atrial fibrillation: Status: Acute Code(s): I48.91 - Unspecified atrial fibrillation SNOMED Code(s): 55067491 Qualifiers: Atrial fibrillation type: paroxysmal Qualified Code(s): I48.0 - Paroxysmal atrial fibrillation (5) Type 2 diabetes mellitus with hyperglycemia: Status: Acute Code(s): E11.65 - Type 2 diabetes mellitus with hyperglycemia SNOMED Code(s): 26123689 Qualifiers: Diabetes mellitus retirement insulin use: without watermelon inspector use Qualified Code(s): E11.65 - Type 2 diabetes mellitus with hyperglycemia (6) Transaminitis: Status: Acute Code(s): R74.0 - Nonspecific elevation of levels of transaminase and lactic acid deh ydrogenase [LDH] SNOMED Code(s): 922011951 (7) History of heart bypass surgery: Status: Acute Code(s): Z95.1 - Presence of aortocoronary bypass graft SNOMED Code(s): 970857158 (8) History of heart artery stent: Status: Acute Code(s): Z95.5 - Presence of coronary angioplasty implant and graft SNOMED Code(s): 914089465 (9) Osteoarthritis, hip, bilateral: Status: Acute Code(s): M16.0 - Bilateral primary osteoarthritis of hip SNOMED Code(s): 625024092 Qualifiers: Osteoarthritis type: primary Qualified Code(s): M16.0 - Bilateral primary osteoarthritis of hip (10) Chronic hip pain, bilateral: Status: Acute Code(s): M25.551 - Pain in right hip; M25.552 - Pain in left hip; G89.29 - Other chronic pain SNOMED Code(s): 75044319 (11) Hypertension: Status: Acute Code(s): I10 - Essential (primary) hypertension SNOMED Code(s): 56485809 Qualifiers: Hypertension type: essential hypertension Qualified Code(s): I10 - Essential (primary) hypertension (12) Decreased mobility: Status: Acute Code(s): R26.89 - Other abnormalities of gait and mobility SNOMED Code(s): 0036948 Medications at Discharge: Ambulatory Orders Medication Instructions Recorded melatonin 3 mg PO BEDTIME 01/31/19 pen needle, diabetic [Ulticare Pen 01/31/19 Needle] albuterol sulfate 90 mcg/actuation 1 puff INHALATION Q4HR 30 Days #1 06/18/19 aerosol inhaler each ibuprofen 600 mg tablet 600 mg PO BID PRN #60 tab 06/18/19 apixaban 5 mg tablet 5 mg PO BID 30 Days #60 tab-cap 08/07/19 omeprazole 20 mg capsule,delayed 20 mg PO QDAY #30 cap 08/18/19 release hydrochlorothiazide 25 mg tablet 25 mg PO DAILY 30 Days #30 tab-cap 10/28/19 metformin 1,000 mg tablet 1,000 mg PO BID 90 Days #180 10/28/19 tab-cap lisinopril 40 mg tablet 40 mg PO QDAY #30 tab 10/29/19 metoprolol tartrate 50 mg tablet 50 mg PO BID #60 tab 10/29/19 tizanidine 2 mg capsule 2 mg PO QHS PRN #30 cap 10/29/19 atorvastatin 20 mg tablet 20 mg PO QDAY #90 tab 10/30/19 dulaglutide 0.75 mg/0.5 mL 0.75 mg SUBCUT QWEEK #1 ml 10/30/19 subcutaneous pen injector Lab/Diagnostics: Laboratory Results WBC 27.53 K/ul (4.6-10.2) H 11/07/19 05:00 RBC 3.87 10^6/ul (4.20-5.40) L 11/07/19 05:00 Hgb 9.8 g/dl (12.0-16.0) L 11/07/19 05:00 Hct 31.6 % (37.0-47.0) L 11/07/19 05:00 MCV 81.7 fl (81.0-99.0) 11/07/19 05:00 MCH 25.3 pg (27.0-31.0) L 11/07/19 05:00 MCHC 31.0 (31.8-35.4) L 11/07/19 05:00 RDW Coeff of Ann 14.3 % (11.6-14.8) 11/07/19 05:00 Plt Count 390 10^3/uL (140-440) 11/07/19 05:00 Immature Gran % (Auto) 0.6 % (0.0-5.0) 11/06/19 13:00 Neut % (Auto) 84.0 % (42.2-75.2) H 11/06/19 13:00 Lymph % (Auto) 7.5 (10.0-50.0) L 11/06/19 13:00 [place] % (Auto) 7.6 (0-10) 11/06/19 13:00 Eos % (Auto) 0.0 % (0.0-7.0) 11/06/19 13:00 Baso % (Auto) 0.3 % (0.0-3.0) 11/06/19 13:00 Immature Gran # (Auto) 0.2 (0.0-1.0) 11/06/19 13:00 Neut # (Auto) 20.4 K/ul (2.0-6.9) H 11/06/19 13:00 Lymph # (Auto) 1.8 K/uL (0.60-3.4) 11/06/19 13:00 [place] # (Auto) 1.9 K/uL (0.4-2.0) 11/06/19 13:00 Eos # (Auto) 0.0 K/ul (0.0-0.7) 11/06/19 13:00 Baso # (Auto) 0.1 K/uL (0-0.2) 11/06/19 13:00 Neutrophils % (Manual) 77.0 % (42.2-75.2) H 11/07/19 05:00 Band Neutrophils % 5.0 % (0.0-5.0) 11/07/19 05:00 Lymphocytes % (Manual) 6.0 % (10.0-50.0) L 11/07/19 05:00 Monocytes % (Manual) 12.0 % (0.0-10.0) H 11/07/19 05:00 Eosinophils % (Manual) 0.0 % (0.0-5.0) 11/07/19 05:00 Basophils % (Manual) 0.0 % (0.0-1.0) 11/07/19 05:00 Polychromasia 1+ (NOT PRESENT) 11/07/19 05:00 Poikilocytosis 1+ (NOT PRESENT) 11/07/19 05:00 Anisocytosis Not present (NOT PRESENT) 11/07/19 05:00 Tear Drop Cells 1+ (NOT PRESENT) 11/07/19 05:00 Puncture Site Rrad 11/06/19 12:33 O2 Saturation 92.0 % (95-100) L 11/06/19 12:33 ABG pH 7.390 (7.35-7.45) 11/06/19 12:33 ABG pCO2 43.2 mmHg (35-45) 11/06/19 12:33 ABG pO2 65.0 mmHg (85-100) L 11/06/19 12:33 ABG HCO3 26.2 (22.0-26.0) H 11/06/19 12:33 ABG Total CO2 27 (22.0-28.0) 11/06/19 12:33 ABG Base Excess 1 (-2.0-2.0) 11/06/19 12:33 Victor Hugo Test + 11/06/19 12:33 FiO2 % 21.0 % 11/06/19 12:33 Sodium 136.7 mmol/L (134.5-145) 11/07/19 05:00 Potassium 3.86 mmol/L (3.5-5.1) 11/07/19 05:00 Chloride 95.8 mmol/L (98-107) L 11/07/19 05:00 Carbon Dioxide 33.0 mmol/L (22-30.0) H D 11/07/19 05:00 Anion Gap 11.76 11/07/19 05:00 BUN 22.4 mg/dL (7-17) H 11/07/19 05:00 Creatinine 1.01 mg/dL (0.60-1.30) D 11/07/19 05:00 Estimated GFR (MDRD) 54.00 mL/min 11/07/19 05:00 BUN/Creatinine Ratio 22.17 11/07/19 05:00 Glucose 247.6 mg/dL (74-106) H D 11/07/19 05:00 Lactic Acid 1.57 mmol/L (0.7-2.1) D 11/07/19 07:29 Calcium 8.93 mg/dL (8.4-10.2) 11/07/19 05:00 Total Bilirubin 0.29 mg/dL (0.2-1.3) 11/07/19 05:00 AST 29.8 U/L (14-36) 11/07/19 05:00 ALT 23.3 U/L (0-35) 11/07/19 05:00 Alkaline Phosphatase 135.4 U/L (53-141) D 11/07/19 05:00 Troponin I 0.038 ng/ml (0.0000-0.120) 11/07/19 05:00 NT-Pro-B Natriuret Pep 637.000 pg/mL (0-124) H 11/06/19 15:00 Total Protein 6.44 g/dL (6.3-8.2) 11/07/19 05:00 Albumin 3.48 g/dL (3.5-5.0) L 11/07/19 05:00 Globulin 2.96 11/07/19 05:00 Albumin/Globulin Ratio 1.17 11/07/19 05:00 TSH 2.200 uIU/L (0.465-4.68) 11/06/19 13:00 Free T4 1.55 ng/dL (0.78-2.19) 11/06/19 13:00 Urine Color Yellow (YELLOW) 11/06/19 12:40 Urine Clarity Clear (CLEAR) 11/06/19 12:40 Urine pH 7.0 (5-9) 11/06/19 12:40 Ur Specific [place] 1.015 (1.005-1.030) 11/06/19 12:40 Urine Protein Trace (NEGATIVE) H 11/06/19 12:40 Urine Glucose (UA) 2+ (NEGATIVE) H 11/06/19 12:40 Urine Ketones Negative (NEGATIVE) 11/06/19 12:40 Urine Blood Trace-intact (NEGATIVE) H 11/06/19 12:40 Urine Nitrite Negative (NEGATIVE) 11/06/19 12:40 Urine Bilirubin Negative (NEGATIVE) 11/06/19 12:40 Urine Urobilinogen 0.2 (0.2) 11/06/19 12:40 Ur Leukocyte Esterase Negative (NEGATIVE) 11/06/19 12:40 Urine Microscopic RBC 10-20 (0-2) 11/06/19 12:40 Urine Microscopic WBC 5-10 (0-2) 11/06/19 12:40 Ur Squamous Epith Cells 10-20 (0-5) 11/06/19 12:40 Ur Transition Epith Cell 0-2 (NOT PRESENT) 11/06/19 12:40 Urine Bacteria 3+ (NOT PRESENT) 11/06/19 12:40 Acetone, Qual N (NONE) 11/06/19 13:00 Influ A Molecular Assay Negative by naat (NEGATIVE) 11/06/19 14:45 Influ B Molecular Assay Negative by naat (NEGATIVE) 11/06/19 14:45 See results for CxR; EKG; and ECHO documented in H&P. Education Provided to Patient and Family: Discussed ECHO and EKG results w/ patient and Dr. Blue's concerns after newly learned episode of 2hr chest pain 2 weeks ago of need for further testing. Brief discussed re: NM stress test and need for transfer w/ multiple cardiac risks and health issues. Patient verbalized understanding w/ no questions at this time. Nurse, Ivette, present during interaction w/ patient who was calm and agrees w/ plan of care. Follow-ups: F-U w/ Sommer Devi APRN, post hospitalization as per hospitalist discretion. Hospital Course: Patient arrived 11/06/2019 afternoon and has been treated for Sepsis w/ clear CXR and no fever noted only WBC elevations and low positive Lactic Acid report-see lab report and H&P discussion. Patient informed CORPORATE COORDINATOR Hospitalist during admission interview of 2 hrs left upper chest pressure w/ cardiac symptoms. Dr. Zain Blue, baggage inspector, was contacted w/ assistance from [place], Case Management and was not aware of chest pain. He is concerned and wants patient transferred to [facility] for needed NM stress test and possible heart cath. Plan: Transfer to [facility] services--report called to hospitalist, Dr. Troncoso @ 5:46PM w/ emphasis on transfer for cardiac reasons per Dr. Zain Blue, baggage inspector, request. Dr. Blue concerned re: hx of recent Chest Pain, recurrent AFIB w/ abnormal ECHO and EKG and wants patient to have NM non-stress test w/ cardiology consult and possible needed cath. All lab results, ECHO, EKG, and CXR results reviewed w/ patient status. Dr. Troncoso admitting patient to bed 444 w/ Hyperglycemia at present and will add other diagnoses after he sees the patient. HAIM Steele, given phone number to call patient report w/ EMS transport to include discs of CXR, ECHO, and EKG copy w/ discharge/transfer papers as per protocol. Critical Care time: 70 minutes.
[2019-11-07] MEDS ORDERED: LIPITOR PO SCH ×2 (17:00)
[2019-11-07 18:38] VITALS: BP 116/70; TEMP 98.6
[2019-11-08] MEDS ORDERED: HYDROCHLOROTHIAZIDE PO SCH (09:00)
--- NOTE | 2019-11-10 14:46 | CONS ---
DATE OF SERVICE: 11/07/2019 CONSULT FOLLOWUP SUBJECTIVE: The patient was seen and examined this morning. The patient's condition is stable. Hyperglycemia seems to be getting under control. Hypoxemia is resolved. She is coughing much less. No symptoms of CHF or coronary insufficiency. The patient is smoker and has not controlled her diabetes well. She is noncompliant of diet. She has poor understanding of her medical problems with noncompliance. MEDICAL/SURGICAL HISTORY: Atrial fibrillation Coronary artery disease with history of coronary bypass surgery Dyslipidemia REVIEW OF SYSTEMS: CONSTITUTIONAL: No night sweats. No fatigue, malaise, lethargy. No fever or chills. HEENT: Eyes: No visual changes. No eye pain. No eye discharge. ENT: No runny nose. No epistaxis. No sinus pain. No sore throat. No odynophagia. No ear pain. No congestion. RESPIRATORY: No cough, no congestion. No hemoptysis. CARDIOVASCULAR: No angina symptoms. No CHF symptoms. No atypical chest pain for CAD. No palpitations. No shortness of breath. GASTROINTESTINAL: No abdominal pain. No nausea or vomiting. No diarrhea or constipation. No hematemesis. No hematochezia. GENITOURINARY: No urgency. No frequency. No dysuria. No hematuria. No obstructive symptoms. No discharge. No pain. No significant abnormal bleeding. MUSCULOSKELETAL: No musculoskeletal pain. No joint swelling. No arthritis. NEUROLOGICAL: No headache. No neck pain. No syncope. No seizures. No dizziness. PSYCHIATRIC: Not anxious. No depression. No suicidal thoughts. No homicidal thoughts. SKIN: No rash. No lesions. No wounds. ENDOCRINE: No unexplained weight loss. No weight gain. HEMATOLOGIC/LYMPHATIC: No anemia. No purpura. No petechiae. No prolonged or excessive bleeding. No palpable lymph nodes. PHYSICAL EXAMINATION: VITAL SIGNS: Temperature 98.8, pulse 100, respiratory rate 16, blood pressure 118/70 and pulse ox 94%. HEENT: Head normocephalic, atraumatic. Eyes: Extraocular muscles are intact. Pupils are equal, round and reactive to light and accommodation. Ears: No lesions. Nose appeared normal. Throat: No exudate or erythema. NECK: Supple. No JVD, no carotid bruit. No lymphadenopathy or thyromegaly. LUNGS: Decreased breath sounds but clear to auscultation. Percussion note normal. Chest symmetrical. HEART: S1, S2,no S3. Irregular rate 90-100 per minute. No murmur. No cyanosis or clubbing. No ascites. Pulses: Dorsalis pedis and posterior tibial pulses +1 to +2 bilaterally. ABDOMEN: Soft. Nontender. Bowel sounds active. No CVA tenderness. No mass felt. EXTREMITIES: No edema. Full range of motion of all extremities, equal. NEUROLOGIC: No focal deficit. Cranial nerves II through XII are grossly intact. No headache, no double vision or headache. SKIN: Not dry. Intact. Turgor - normal. LYMPHATIC: No palpable lymph nodes/no lymphedema. MUSCULOSKELETAL: Normal joints with no swelling. Muscle tone is normal. LABS: Hgb 9.8, hct 31, WBC 27,000 normal differential, creatinine 1, BUN 22, potassium 3.8, glucose 247 ASSESSMENT: 1. Atrial fibrillation has practically normal ventricular response. The patient is on Metoprolol 50mg twice a day, will continue that. The patient's EKG showed LVH with strain pattern. Echo showed borderline LVH with hypokinetic septal wall with ejection fraction 50%. The patient has RV cavity enlargement and left atrial cavity enlargement. RECOMMENDATIONS: 1. Counseling for smoking done 2. The patient refuses insulin therapy. 3. Jardiance recommended 10mg daily along with the rest of the medication including Trulicity 4. Complications of diabetes discussed with the patient in detail. 5. The patient has anemia, they may have to be worked up. 6. Leukocytosis seems to be out of the question 7. Strongly advised to discontinue Ibuprofen because the patient is taking Apixaban that is Eliquis. Side effects of Eliquis discussed with the patient including intracranial bleed and GI bleed. No nonsteroidal anti-inflammatory discussed with the patient. 8. Cholesterol is still high, we will increase the Atorvastatin to 40mg. Non- HDL goal should be 100. 9. As we started her on Jardiance we will decrease the Hydrochlorothiazide to 12.5mg. 10. PFT and Carotid scan PROGNOSIS: Guarded. PROGNOSIS: Guarded MTDD
--- NOTE | 2019-11-11 14:16 | CONS ---
DATE OF CONSULTATION: 11/06/19 REASON FOR CONSULTATION: Atrial fibrillation, short of breath. HISTORY OF PRESENT ILLNESS: 75-year-old white female presented to the ER with dizziness, dry mouth. She believes her blood sugar is elevated. Low grade temperature at 99.3 in the ER. 02 sat 91% on room air. The patient is hospitalized with mild cough and shortness of breath. The patient has history of atrial fibrillation. She is on Apixaban and several other medications. Cough is mild. The patient has low grade fever. The patient's p02 is in the 60s with pc02 35. Normal oxygen saturation on room air. The patient is not in any distress. REVIEW OF SYSTEMS: CONSTITUTIONAL: Fever is low at 99.3 but afebrile since. Positive for fatigue and weakness. HEENT: No sinus drainage. RESPIRATORY: No cough but wheezes at times. No hemoptysis. CVS: No anginal symptoms. No CHF symptoms. No edema. GI: No melena. No weight loss. : No dysuria. No frequency. MUSCULOSKELETAL: Osteoarthritis pain in the hips. FIELD MARKETING ASSOCIATE: No blackout. Dizziness: "yes room is spinning". No headache. SKIN: Warm and dry. PSYCHIATRIC: Not anxious. No depression. No suicidal thoughts. SOCIAL HISTORY: Tobacco: Yes. Alcohol use: Yes. . MEDICATIONS: ProAir HCTZ Trulicity Atorvastatin Eliquis Metformin Melatonin Lisinopril Ibuprofen Metoprolol Zanaflex Omeprazole ALLERGIES: NKDA PAST MEDICAL/SURGICAL HISTORY: Atrial fibrillation DVT Type 2 diabetes mellitus GERD Arthritis - hips Dyslipidemia CABG - ? year 2003 Cardiac Stent - year? Cholecystectomy Hysterectomy The patient saw Sommer Devi, October 29, 2019 and reported "stinging pain left upper chest and elephant on chest" , difficulty breathing but went away. PHYSICAL EXAMINATION: VITAL SIGNS: Pulse 105, BP 118/69, temperature 98.8, 02 sat 94% on 2L. Weight 177 lbs. BMI 30.4. GENERAL: Awake, alert and oriented times three. HEENT: Normal. NECK: No JVP, no bruits. RESPIRATORY: Lungs are clear. CVS: S1, S2, no S3. No murmur. No ascites. ABDOMEN: Normal. FIELD MARKETING ASSOCIATE: Normal. EXTREMITIES: No edema. Pulses +1. LABS/X-RAYS/ABGS: On admission: WBC 24.35, hemoglobin 11.3, hematocrit 37.0, platelets 468. NA 133, chloride 85.9, BUN 28.9, glucose 742.8, K+ 4.46, c02 25.0, creatinine 1.54. Room Air ABGs: 92% sat, HC03.26, pH 7.390, pC02 43.2, p02 65. Lactic acid 4.86, pro-BNP 637.000, troponin 0.029 and 0.038, TSH 2.200, Free T4 1.55. EKG atrial fibrillation. Chest x-ray no acute process. Outpatient labs 10/29/19 A1C 9.32, triglycerides 363, cholesterol 221.9, LDL 101, HDL 48, VLDL 73, TSH 2.260, Free T4 1.55. DIAGNOSIS: 1. Atrial fibrillation/shortness of breath multifactorial/sedentary lifestyle/atrial fibrillation/COPD/smoking/CAD 2. CABG. 3. Diabetes mellitus type 2. 4. Hypertension. 5. Noncompliance 6. Bronchitis. Chest x-ray is normal. Blood gases acceptable. 7. History of dyslipidemia. PLAN: 1. Will do echocardiogram to evaluate LV function. 2. Increase Lipitor to 40 mg. 3. Decrease Hydrochlorothiazide to 12.5 mg. 4. Stop Ibuprofen. 5. Continue the rest of the medications. 6. The patient is on Rocephin. 7. Counseling for smoking done. 8. Dobutamine stress recommended. 9. Case discussed with hospitalist. 10.Restart Statin. 11.Followup with primary care. Thanks for referral, will follow. CONDITION: Stable. [place]
== END 2019-11-07 18:50 | disposition short-term general hospital (02) | DRG 149 ==
LOC: MEDSURG B 11:47 → ED 11:47 → OBSVTOIN 15:46 → MEDSURG B 16:05
PROVIDERS: ADMIT Nurse Practitioner Family; ATTEND Nurse Practitioner Family
DX: E78.5 Hyperlipidemia, unspecified; E66.9 Obesity, unspecified; R53.1 Weakness; J20.9 Acute bronchitis, unspecified; R07.9 Chest pain, unspecified; E11.65 Type 2 diabetes mellitus with hyperglycemia; K21.9 Gastro-esophageal reflux disease without esophagitis; D72.829 Elevated white blood cell count, unspecified; I10 Essential (primary) hypertension; R42 Dizziness and giddiness; F17.210 Nicotine dependence, cigarettes, uncomplicated; Z95.5 Presence of coronary angioplasty implant and graft; R00.0 Tachycardia, unspecified; M16.0 Bilateral primary osteoarthritis of hip; I25.810 Atherosclerosis of coronary artery bypass graft(s) without angina pectoris; M25.551 Pain in right hip; E86.0 Dehydration; Z79.01 Long term (current) use of anticoagulants; I48.0 Paroxysmal atrial fibrillation; Z79.899 Other long term (current) drug therapy; R26.89 Other abnormalities of gait and mobility; R74.0 Nonspecific elevation of levels of transaminase and lactic acid dehydrogenase [LDH]; A41.9 Sepsis, unspecified organism; M25.552 Pain in left hip; G89.29 Other chronic pain; R53.82 Chronic fatigue, unspecified; R06.2 Wheezing; R09.02 Hypoxemia

== ENCOUNTER 2019-11-15 11:50 | Observation (INO) ==
[2019-11-15 12:00] VITALS: BMI 29.2
[2019-11-15] MEDS ORDERED: SODIUM CHLORIDE 1,000 ML IV STA (12:30)
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
--- NOTE | 2019-11-15 13:55 | DI ---
EXAM: Chest one view, frontal view only. HISTORY: Dizziness. COMPARISON: 11/06/2019. FINDINGS: The heart size is enlarged. There has been prior sternotomy. There is no pulmonary vascu lar congestion. Question focal opacity in the lateral left lung base just above the diaphragm. Othe rwise, the lungs are clear. No pleural effusion or pneumothorax is seen. No acute osseous abnormali ty is identified. IMPRESSION: Question left basilar pneumonia. Follow-up is recommended.
[2019-11-15 14:11] LABS: HEMATOCRIT 33.5 % (37.0-47.0)
[2019-11-15] MEDS ORDERED: DEXTROSE 5%-LR IV SOLUTION 1,000 ML IV STA (15:16)
[2019-11-15] MEDS ORDERED: ZOFRAN 4 MG/2 ML IVP STA (16:21)
[2019-11-15] MEDS ORDERED: TRANDATE IVP STA (16:40)
[2019-11-15] MEDS ORDERED: ZOFRAN 4 MG/2 ML IVP PRN (16:40)
[2019-11-15] MEDS ORDERED: HUMULIN R SUBCUT PRN (16:40)
[2019-11-15] MEDS ORDERED: PRILOSEC PO SCH (17:00)
[2019-11-15] MEDS ORDERED: LIPITOR PO SCH ×2 (17:00→21:00)
[2019-11-15] MEDS ORDERED: VENTOLIN HFA (PER PUFF-WITH SPACER) IH SCH (17:00)
[2019-11-15] MEDS ORDERED: ROCEPHIN 1 GM/50 ML D5W 1 GM/50 ML BAG IV STA (17:35)
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
[2019-11-15] MEDS: VENTOLIN HFA (PER PUFF-WITH SPACER) IH SCH (19:50)
[2019-11-15] MEDS ORDERED: GLUCOPHAGE PO SCH (21:00)
[2019-11-15] MEDS ORDERED: TIZANIDINE 2 MG PO PRN (21:00)
[2019-11-15] MEDS ORDERED: ELIQUIS PO SCH (21:00)
[2019-11-15] MEDS: PRILOSEC PO SCH (21:06)
[2019-11-16] MEDS: VENTOLIN HFA (PER PUFF-WITH SPACER) IH SCH ×4 (05:05→23:34)
[2019-11-16 05:10] LABS: HEMATOCRIT 31.8 % (37.0-47.0)
[2019-11-16] MEDS: PRILOSEC PO SCH (06:12)
[2019-11-16] MEDS: SODIUM CHLORIDE 500 ML IV SCH ×2 (06:56→07:26)
[2019-11-16] MEDS ORDERED: ZANAFLEX PO PRN (07:19)
[2019-11-16] MEDS: SODIUM CHLORIDE 1,000 ML IV SCH ×2 (07:26→13:14)
[2019-11-16] MEDS: GLUCOPHAGE PO SCH ×2 (08:12→16:59)
[2019-11-16] MEDS: ELIQUIS PO SCH ×2 (08:12→20:08)
[2019-11-16] MEDS ORDERED: VENTOLIN HFA (PER PUFF-WITH SPACER) IH SCH ×3 (09:00→10:00)
--- NOTE | 2019-11-16 09:28 | DI ---
EXAM: Chest two view, frontal and lateral views. HISTORY: Possible pneumonia. COMPARISON: 1 day prior. FINDINGS: Sternotomy wires again noted. Heart is mildly enlarged. Atherosclerotic calcifications p resent. There is no vascular congestion. There are linear opacities at the left lung base. The mor e focal opacity questioned on the prior study is not identified currently. No new consolidation, ple ural effusion or pneumothorax identified. No acute osseous abnormality is seen. IMPRESSION: Linear opacities at the left base could represent subsegmental atelectasis or pneumonia.
--- NOTE | 2019-11-16 16:05 | PCM.PROG ---
Date Seen by Provider: 11/16/19 Time Seen by Provider: 08:02 Subjective: pt seated in chair at the bedside. no family in room. pt states she doesn't feel good. says she is nauseated and has vomited x 2 this morning. states she still feels dizzy even while seated. says room is spinning. pt states she had dinner last night without return of vomiting at that time. pt wants to have breakfast this morning even though she says she is nauseous. Objective: Vitals: T=97.8 F, P=76, R=18, TX=920/61, SPO2=94 HEENT: [PERRLA, EOMs intact, non icteric, no conjunctivitis] Neck: [supple] Lungs: [CTA bilaterally] CVS: [irregularly irregular S1S2] Abdomen: [soft non tender bowel sounds present] Extremities: [FROM] Neurological: [cranial nerves grossly intact] Skin: [warm dry no lesions noted] Lab/Tests/Diagnostic Imaging: wbc 26.65 hgb 9.5 hct 31.8 plt 442; BUN 37.1 Cr 1.16 glu 145 EXAM: 11/15 Chest two view, frontal and lateral views. HISTORY: Possible pneumonia. COMPARISON: 1 day prior. FINDINGS: Sternotomy wires again noted. Heart is mildly enlarged. Atherosclerotic calcifications present. There is no vascular congestion. There are linear opacities at the left lung base. The more focal opacity questioned on the prior study is not identified currently. No new consolidation, pleural effusion or pneumothorax identified. No acute osseous abnormality is seen. IMPRESSION: Linear opacities at the left base could represent subsegmental atelectasis or pneumonia. ] (1) Acute hypotension: Status: Acute Code(s): I95.9 - Hypotension, unspecified SNOMED Code(s): 83307965 (2) Hx of leukocytosis: Status: Acute Code(s): Z86.2 - Personal history of diseases of the blood and blood-forming organs and certain disorders involving the immune mechanism SNOMED Code(s): 621716473 (3) Atrial fibrillation: Status: Acute Code(s): I48.91 - Unspecified atrial fibrillation SNOMED Code(s): 96001484 (4) Hypertension: Status: Acute Code(s): I10 - Essential (primary) hypertension SNOMED Code(s): 12809641 (5) History of heart bypass surgery: Status: Acute Code(s): Z95.1 - Presence of aortocoronary bypass graft SNOMED Code(s): 259136302 (6) Diabetes mellitus: Status: Acute SNOMED Code(s): 81154631 (7) Nausea, vomiting and diarrhea: Status: Acute Code(s): R11.2 - Nausea with vomiting, unspecified; R19.7 - Diarrhea, unspecified SNOMED Code(s): 6779872 (8) Hypovolemia dehydration: Status: Acute Code(s): E86.1 - Hypovolemia SNOMED Code(s): 67802453 Plan: Essential HTN -lisinopril and HCTZ on hold -now with acute hypotension, improved with hydration -likely related to NVD, volume contraction; cont IV fluids NVD, dehydration -continues to c/o nausea with vomiting; not observed or reported to nursing staff -likely related to gastroenteritis; cont fluids and antiemetics -pt insists on continuing to eat solids; monitor volume status and electrolytes -if sxs persist, may require bowel rest and make NPO dizziness/lightheaded -slight improvement; still c/o dizziness, room spinning, ?benign positional vertigo, may try meclizine if persists -possibly related to volume contraction and/or hypoglycemia; cont gentle hydration; reassess once euvolemic -must watch volume status, unclear if pt has heart failure diabetes type 11, not on insulin therapy -hypoglycemia improved/resolved, glucose 145 this am; IV fluids changed to normal saline -cont metformin; hold trulicity; freq glucose checks and SSI as needed with hypoglycemia protocol -pt recently discharged from [employer] was to continue her trulicity, metformin, and add jardiance -pt states not on jardiance; had injection x 1 of trulicity on sunday, first dose per pt; but she then says she doesn't think it is keeping her sugars controlled hx leukocytosis, chronic -wbc 14.14 february 2019; 11/05 24.35, 11/06 27.53, 11/14 29.50, 11/15 26.65 -unclear etiology, ?myeloproliferative disease; monitor; needs f/u with hematology at discharge -afebrile; questionable PNA per CXR read; but no source that accounts for the significant elevation of wbcs and is noted that lab values have been like this chronically since january 2019 and continue to rise atrial fib -metoprolol on hold due to low blood pressure, rate cont to be stable so far -resume metoprolol in am with parameters -cont on eliquis; cont telemetry CAD/remote hx CABG -October 2019, recent ECHO EF 50% w/septal hypokinesis, enlarged left atrium and right ventricle -unclear with pt may have component of heart failure; monitor volume status closely DVT PPx: on eliquis GI PPx: omeprazole CODE: full
[2019-11-16] MEDS: DOXYCYCLINE HYCLATE PO SCH (20:08)
[2019-11-16] MEDS: ANTIVERT PO PRN (20:08)
[2019-11-16] MEDS: TOPROL XL PO SCH (20:08)
[2019-11-16] MEDS ORDERED: LIPITOR PO SCH (21:00)
[2019-11-17] MEDS: VENTOLIN HFA (PER PUFF-WITH SPACER) IH SCH ×3 (05:06→11:17)
[2019-11-17 05:08] LABS: HEMATOCRIT 28.6 % (37.0-47.0)
[2019-11-17] MEDS ORDERED: PRILOSEC PO SCH (06:30)
[2019-11-17] MEDS: SODIUM CHLORIDE 1,000 ML IV SCH (06:50)
[2019-11-17] MEDS: DOXYCYCLINE HYCLATE PO SCH (08:18)
[2019-11-17] MEDS: ANTIVERT PO PRN (08:18)
[2019-11-17] MEDS: TOPROL XL PO SCH (08:18)
[2019-11-17] MEDS: GLUCOPHAGE PO SCH (08:19)
[2019-11-17] MEDS: ELIQUIS PO SCH (08:19)
--- NOTE | 2019-11-17 11:49 | PCM.DC ---
Final Diagnosis: Hypovolemia dehydration: This has resolved. Pt is to continue with PO water when at home. If able monitor BP at home and report readings to PCP Acute Hypotension: This has resolved Hypoglycemia: This has resolved, Ensure you check your glucose levels 3 times a day and at bed time. Have a sugar source near by in the event the numbers are too low. N/V/D: Pt states that she does feel a little upset in her stomach however this is improved, She states she has not vomited yesterday and today and that her diarrhea has resolved. Urinary Tract Infection: you have been getting Doxycycline during your hospitalization. Will continue this for another day. Vertigo: related to Dehydration, Hypotension, Low Glucose, and possible inner ear issues. (1) Vertigo: Status: Acute Code(s): R42 - Dizziness and giddiness SNOMED Code(s): 296656968 (2) Acute hypotension: Status: Acute Code(s): I95.9 - Hypotension, unspecified SNOMED Code(s): 54859175 (3) Hx of leukocytosis: Status: Acute Code(s): Z86.2 - Personal history of diseases of the blood and blood-forming organs and certain disorders involving the immune mechanism SNOMED Code(s): 452059907 (4) Atrial fibrillation: Status: Acute Code(s): I48.91 - Unspecified atrial fibrillation SNOMED Code(s): 20140624 (5) Hypertension: Status: Acute Code(s): I10 - Essential (primary) hypertension SNOMED Code(s): 16634440 Qualifiers: Hypertension type: essential hypertension Qualified Code(s): I10 - Essential (primary) hypertension (6) History of heart bypass surgery: Status: Acute Code(s): Z95.1 - Presence of aortocoronary bypass graft SNOMED Code(s): 420517427 (7) Diabetes mellitus: Status: Acute SNOMED Code(s): 26919517 (8) Nausea, vomiting and diarrhea: Status: Acute Code(s): R11.2 - Nausea with vomiting, unspecified; R19.7 - Diarrhea, unspecified SNOMED Code(s): 9058507 (9) Hypovolemia dehydration: Status: Acute Code(s): E86.1 - Hypovolemia SNOMED Code(s): 57156386 (10) Urinary tract infection: Status: Acute Code(s): N39.0 - Urinary tract infection, site not specified SNOMED Code(s): 02806947 Qualifiers: Hematuria presence: with hematuria Reason for Hospitalization: Pt was hospitalized for N/V/D, Acute Hypotension, Hypoglycemia, Hypovolemia, UTI, Vertigo. Prognosis at Discharge: Pt has improved and is able to go home. Pt states that she will be fine when she returns home. She was advised to make a follow up appointment with her PCP in about 3 days. Check her glucose 3 times a day and monitor BP and report these numbers to her PCP. Condition at Discharge: Pt condition has resolved with improvement to UTI, WBC, Breathing. HEENT: Normocephalic, slight language barrier but able to hear without difficulty, no nystagmus, good FOV, nares patent, no lymphadenopathy Chest: Clear lung sounds post NEB Tx Heart: no clicks, rubs, or murmurs, VSS Lungs:Clear post NEB Tx, no cough Abdomen: Soft, active bowel sounds Extremities: normal gait with walker, no edema Mental: slight language barrier Medications at Discharge: Ambulatory Orders Medication Instructions Recorded melatonin 3 mg PO BEDTIME 01/31/19 pen needle, diabetic [Ulticare Pen 01/31/19 Needle] albuterol sulfate 90 mcg/actuation 1 puff INHALATION Q4HR 30 Days #1 06/18/19 aerosol inhaler each ibuprofen 600 mg tablet 600 mg PO BID PRN #60 tab 06/18/19 apixaban 5 mg tablet 5 mg PO BID 30 Days #60 tab-cap 08/07/19 omeprazole 20 mg capsule,delayed 20 mg PO QDAY #30 cap 08/18/19 release hydrochlorothiazide 25 mg tablet 25 mg PO DAILY 30 Days #30 tab-cap 10/28/19 metformin 1,000 mg tablet 1,000 mg PO Daily 90 Days #180 10/28/19 tab-cap lisinopril 40 mg tablet 40 mg PO QDAY #30 tab 10/29/19 metoprolol tartrate 50 mg tablet 50 mg PO BID #60 tab 10/29/19 tizanidine 2 mg capsule 2 mg PO QHS PRN #30 cap 10/29/19 atorvastatin 20 mg tablet 20 mg PO QDAY #90 tab 10/30/19 dulaglutide 0.75 mg/0.5 mL 0.75 mg SUBCUT QWEEK #1 ml 10/30/19 subcutaneous pen injector Lab/Diagnostics: Patient: Tasha DUARTE : 1945 Bed: 1 Age/Sex: 73 Date:11/16/19 Procedure(s): CHEST, 2 VIEWS PA & LAT HISTORY: Possible pneumonia. FINDINGS: Sternotomy wires again noted. Heart is mildly enlarged. Atherosclerotic calcifications present. There is no vascular congestion. There are linear opacities at the left lung base. The more focal opacity questioned on the prior study is not identified currently. No new consolidation, pleural effusion or pneumothorax identified. No acute osseous abnormality is seen. IMPRESSION: Linear opacities at the left base could represent subsegmental atelectasis or pneumonia. Dictated By:IGLESIA EPPERSON Signed By:IGLESIA EPPERSON Dictated Date/Time: 11/16/19920 ABC improved: though Pt does have Chronic Leukocytosis. Education Provided to Patient and Family: Check glucose 3 times a day and before bed and report these numbers to your PCP. Make appointment with your PCP in 3 days. Drink plenty of water too help with dehydration and UTI. Check you BP 2-3 times a day and report these numbers to your PCP. Take the Antivert 3 times a day for the first 2 days and then as needed there after. Discuss with your PCP if you need to continue this. My understanding is that you started Trulicity about a week ago. Discuss this with your PCP since you had low blood glucose levels. However, your glucose levels likely were low due to your Nausea and Vomiting. I have ordered you a few days of Zofran for any Nausea you may have. Also, I have ordered you Antivert for the Dizziness (Vertigo) you have been having and which you stated has made a good improvement. Take all other medications as directed by your PCP. Thank you for allowing me to take care of you during this hospitalization. Follow-ups: With PCP in 3 days as noted above. Discharge Disposition: Home Hospital Course: Pt has improved with the interventionis outlined in the plan. Pt will still need to f/u with her PCP. Plan: Continue home medications as written by your PCP. Take medications written on DC home as indicated. Drink plenty of water, check glucose 3 times a day and at bed time as well as your BP 3 times a day and report those numbers to your PCP.
[2019-11-17] MEDS ORDERED: NON-FORMULARY MEDICATION (Dulaglutide [Trulicity] 0.75 MG) SUBCUT SCH (13:45)
[2019-11-17] MEDS ORDERED: MOTRIN PO PRN (13:45)
[2019-11-17 14:25] VITALS: BP 142/65; TEMP 97.6
[2019-11-18] MEDS ORDERED: HYDROCHLOROTHIAZIDE PO SCH (09:00)
[2019-11-18] MEDS ORDERED: ZESTRIL PO SCH (09:00)
== END 2019-11-17 15:17 | disposition home or self-care (01) ==
LOC: ED 11:50 → MEDSURG B 11:50
PROVIDERS: ADMIT Nurse Practitioner Family; ATTEND Nurse Practitioner Family
DX: R53.83 Other fatigue; E86.1 Hypovolemia; E16.2 Hypoglycemia, unspecified; D72.829 Elevated white blood cell count, unspecified; I48.91 Unspecified atrial fibrillation; G89.29 Other chronic pain; Z79.01 Long term (current) use of anticoagulants; Z86.718 Personal history of other venous thrombosis and embolism; M19.90 Unspecified osteoarthritis, unspecified site; Z79.899 Other long term (current) drug therapy; M25.551 Pain in right hip; R53.1 Weakness; E11.9 Type 2 diabetes mellitus without complications; F17.210 Nicotine dependence, cigarettes, uncomplicated; R06.02 Shortness of breath; Z95.1 Presence of aortocoronary bypass graft; K21.9 Gastro-esophageal reflux disease without esophagitis; I95.9 Hypotension, unspecified; R11.2 Nausea with vomiting, unspecified; I10 Essential (primary) hypertension; K52.9 Noninfective gastroenteritis and colitis, unspecified; R42 Dizziness and giddiness; R41.82 Altered mental status, unspecified; M25.552 Pain in left hip; N39.0 Urinary tract infection, site not specified; I25.810 Atherosclerosis of coronary artery bypass graft(s) without angina pectoris